=== PATIENT | female | born 1995 | race Caucasian/White ===

== ENCOUNTER 2018-05-25 18:48 | Emergency (ER) | payer OTHER ==
[2018-05-25] MEDS ORDERED: AMOXICILLIN/CLAVULANATE POT 875/125 MG TAB PO ONE (19:40)
--- NOTE | 2018-05-25 19:40 | EDPHY ---
General Time Seen by Provider: 05/25/18 19:13 Narrative: CHIEF COMPLAINT: Dog bite HISTORY OF PRESENT ILLNESS: Patient presents with complaints of dog bite to the right arm and the right lower leg. She says that her roommate's dog suddenly attacked her other roommates prior to arrival. She attempted to intervene, and the dog turned to her. She sustained multiple bites to the right arm and right lower flannery. The right flannery does not bother her, but the right elbow and forearm are very painful. Rated 10/10. No numbness or tingling. No weakness. No difficulty straightening or bending the elbow but it is very painful to do so. Tetanus is up-to-date. No other associated complaints or modifying factors TIME OF INJURY: Less than 1 hr prior to arrival TETANUS STATUS: Up-to-date MEDICAL/SURGICAL/SOCIAL HISTORY: Uncomplicated. REVIEW OF SYSTEMS: Ten systems reviewed and are negative unless otherwise noted in the HPI EXAMINATION General Appearance: Alert, no distress Head: normocephalic, atraumatic Cardiovascular: Symmetric radial pulses 2+. Symmetric numbers cap refill the fingers. Neurological: A&O, light sensory symmetric, corporate consultant and interossei strength symmetric Skin: Warm and dry, no rash. Multiple punctures of the right upper extremity involving the proximal forearm. The greatest and measurements 4 cm. There are several 1 cm lacerations. No foreign body. No exposure of the deep tendon structures. There are superficial abrasions and punctures to the right ankle circumferentially with no significant laceration. Extremities: Moderate tenderness of the right elbow involving the soft tissue punctures. No bony tenderness of the olecranon. No difficulty straightening the elbow. All compartments are soft the right upper extremity. Neurovascular intact distal to the injuries. MDM: 7:30 p.m. Dog bite to right elbow, forearm and right ankle that occurred just prior to arrival. She does have superficial abrasions the lower extremities that will not require suture repair the right forearm will need to be copiously irrigated and closed loosely or heal by delayed closure. Tetanus is up-to-date. She has moderate pain in the elbow, thus x-ray has been ordered as well. Animal Control has been contacted and the animal is in custody. 9:15 p.m. Wounds have been irrigated and re-evaluated. There was a very deep wound that will need closure and the remainder of the wounds will heal by a secondary intention. She has been placed on Augmentin with 1st dose here. We discussed 48 hr to 72 hr wound check possibility of delayed closure. We also discussed that this may not be necessary or appropriate at that time. We discussed short course of pain medication orthopedic follow-up of discussed ED precautions for numbness, tingling, weakness or fever. She is comfortable this plan and discharged home stable condition. [facility] did visit with her here in the department. PROCEDURE: Laceration repair, 1. Consent: Verbal Location: Right forearm, volar Length of repair: 4 cm Complexity: Complex Layer involvement: Single Anesthesia: Local. 0.5% Marcaine with epinephrine, 7 mL Irrigation: Extensive Debridement: None Procedure description: Following good anesthesia, the wound was copiously irrigated. Wound bed was explored with a sterile glove, and there is no foreign body noted. Wound borders were approximated well with good hemostasis. Tolerated well without complication. Suture/Staple material: 4-0 Prolene, 4 loose interrupted sutures Wound care: Routine as discussed Suture/Staple removal:10 Days PROCEDURE: Laceration repair, 2. Consent: Verbal Location: Right forearm Length of repair: 1.5 cm Complexity: Simple Layer involvement: Single Anesthesia: Local. 0.5% Marcaine with epinephrine, 3 mL Irrigation: Extensive Debridement: None Procedure description: Following good anesthesia, the wound was copiously irrigated. Wound bed was explored with a sterile glove, and there is no foreign body noted. Wound borders were approximated well with good hemostasis. Tolerated well without complication. Suture/Staple material: 4-0 Prolene, 1 loose simple interrupted sutures Wound care: Routine as discussed Suture/Staple removal: 10 Days PROCEDURE: Laceration repair, 3. Consent: Verbal Location: Right forearm Length of repair: 1 cm Complexity: Simple Layer involvement: Single Anesthesia: Local per 0.5% Marcaine with epinephrine, 2 mL Irrigation: Extensive Debridement: None Procedure description: Following good anesthesia, the wound was copiously irrigated. Wound bed was explored with a sterile glove, and there is no foreign body noted. Wound borders were approximated well with good hemostasis. Tolerated well without complication. Suture/Staple material: 4-0 Prolene, 1 loose simple interrupted suture Wound care: Routine as discussed Suture/Staple removal: 10 Days PROCEDURE: Laceration repair, 4. Consent: Verbal Location: Right forearm Length of repair: 1 cm Complexity: Simple Layer involvement: Single Anesthesia: Local. 0.5% Marcaine with epinephrine, 2 mL Irrigation: Extensive Debridement: None Procedure description: Following good anesthesia, the wound was copiously irrigated. Wound bed was explored with a sterile glove, and there is no foreign body noted. Wound borders were approximated well with good hemostasis. Tolerated well without complication. Suture/Staple material: 4-0 Prolene, 1 loose simple interrupted suture Wound care: Routine as discussed Suture/Staple removal: 10 Days SUPERVISION: This patient was independently evaluated without direct involvement of or examination by the attending physician. ED Precautions: Worsening pain. Erythema, edema, cyanosis, pallor, paresthesia or anesthesia. - History Smoking Status: Never smoked - Objective Vital Signs: Initial Vital Signs Temperature (C) 97.9 F 05/25/18 19:02 Heart Rate 79 05/25/18 19:02 Respiratory Rate 16 05/25/18 19:02 Blood Pressure 126/81 H 05/25/18 19:02 O2 Sat (%) 98 05/25/18 19:02 O2 Delivery Mode Room Air Allergies/Adverse Reactions: tree nut Allergy (Verified 05/25/18 19:04) Home Medications: Medication Instructions Recorded ALBUTEROL SULFATE 05/25/18 Amoxicillin/Clavulanate Pot 875 mg PO BID #20 tab 05/25/18 [Augmentin 875 MG TAB (*)] oxyCODONE HCL/ACETAMINOPHEN 1 each PO Q4-6PRN PRN #7 tablet 05/25/18 [Percocet 5-325 mg Tablet] Medications Given: Discontinued Medications Amoxicillin/Clavulanate Potassium (Augmentin 875mg) 875 mg PO EDNOW ONE PRN Reason: Protocol Stop: 05/25/18 19:41 Last Admin: 05/25/18 20:03 Dose: 875 mg Oxycodone/Acetaminophen (Percocet 5/325) 2 tab PO EDNOW ONE Stop: 05/25/18 19:55 Last Admin: 05/25/18 20:03 Dose: 2 tab Oxycodone/Acetaminophen (Percocet 5/325mg Prepack#4) 1 btl TAKEHOME EDNOW ONE Stop: 05/25/18 21:13 Last Admin: 05/25/18 21:30 Dose: 1 btl Departure - Departure Disposition: Home, Routine, Self-Care Clinical Impression: Dog bite of right forearm Qualifiers: Encounter type: initial encounter Qualified Code(s): S51.851A - Open bite of right forearm, initial encounter; W54.0XXA - Bitten by dog, initial encounter; W54.0XXA - Bitten by dog, initial encounter Dog bite of right ankle Qualifiers: Encounter type: initial encounter Qualified Code(s): S91.051A - Open bite, right ankle, initial encounter; W54.0XXA - Bitten by dog, initial encounter; W54.0XXA - Bitten by dog, initial encounter Condition: Good Instructions: Oxycodone/Acetaminophen (By mouth), Animal Bite (ED) Additional Instructions: 1. Wash the wounds daily with antibiotic soap. Do not use peroxide or alcohol 2. Keep the wounds clean, dry and covered otherwise. Do not immerse in any water source 3. Return here for wound check in 48-72 hours 4. Augmentin by mouth twice daily for 10 days 5. Pain medication as prescribed as needed 6. Orthopedic follow-up as needed for ongoing pain or difficulty bending or straightening the elbow 7. ED precautions as discussed Referrals: Crodelia Griffin NP [Primary Care Provider] - As per Instructions Flavio Oconnor MD [Medical Doctor] - As per Instructions Prescriptions: Amoxicillin/Clavulanate Pot [Augmentin 875 MG TAB (*)] 875 mg PO BID #20 tab oxyCODONE HCL/ACETAMINOPHEN [Percocet 5-325 mg Tablet] 1 each PO Q4-6PRN PRN #7 tablet PRN Reason: Pain, Breakthrough
[2018-05-25] MEDS ORDERED: OXYCODONE/APAP 5/325 TAB PO ONE (19:54)
[2018-05-25] MEDS ORDERED: OXYCODONE/APAP 5/325MG PREPACK#4 BTL TAKEHOME ONE (21:12)
[2018-05-25 21:37] VITALS: BP 126/73
== END 2018-05-25 21:39 | disposition home or self-care (01) ==
PROC: 0HQDXZZ Repair Right Lower Arm Skin, External Approach (ICD-10-PCS; principal; 2018-05-25)
DX: S51.851A Open bite of right forearm, initial encounter (principal); S91.051A Open bite, right ankle, initial encounter; W54.0XXA Bitten by dog, initial encounter; Y92.9 Unspecified place or not applicable